=== PATIENT | female | born 1955 | race Caucasian/White ===

== ENCOUNTER 2024-03-22 13:48 | Emergency (ER) | payer MEDICARE, OTHER ==
[2024-03-22] MEDS ORDERED: Zofran 4 MG/2 ML VIAL ONE (14:36)
[2024-03-22] MEDS ORDERED: Hydromorphone 1 mg/ml Injection ONE (14:36)
[2024-03-22] MEDS ORDERED: Sodium Chloride 0.9% 1000 ML 1,000 ML ONE (14:37)
[2024-03-22 14:38] LABS: Absolute Neutrophil Ct (ANC) 2.67 x10^3/uL (1.56-6.13); Basophil (Absolute #) 0 x10^3/uL (0.01-0.08); Eosinophil % 3.8 % (0.7-5.8); Eosinophil (Absolute #) 0.13 x10^3/uL (0.04-0.36); Hematocrit 42.6 % (34.1-44.9); Hemoglobin 13.8 g/dL (11.2-15.7); IMMATURE GRAN # 0.01 x10^3u/L (0.001-0.031); IMMATURE GRAN % 0.3 % (0.001-0.429); Lymphocyte (Absolute #) 0.23 x10^3/uL (1.18-3.74); Lymphocytes % 6.7 % (19.3-51.7); Mean Cell Volume 88.6 fL (79.4-94.8); Mean Corpuscular Hemoglobin 28.7 pg (25.6-32.2); Mean Corpuscular Hgb Concent. 32.4 g/dL (32.2-35.5); Monocyte (Absolute #) 0.38 x10^3/uL (0.24-0.86); Monocytes % 11.1 % (4.7-12.5); Neutrophil % 78.1 % (34.0-71.1); Platelet Count 198 x10^3/uL (182-369); Red Blood Count 4.81 x10^6/uL (3.93-5.22); White Blood Count 3.4 x10^3/uL (3.98-10.04)
[2024-03-22] MEDS: Sodium Chloride 0.9% 1000 ML 1,000 ML IV STA (14:39)
[2024-03-22] MEDS: Hydromorphone 1 mg/ml Injection IV ONE (14:39)
[2024-03-22] MEDS: Zofran 4 MG/2 ML VIAL IV ONE (14:39)
[2024-03-22 14:43] LABS: ALBUMIN 4.5 g/dL (3.5-5.0); ANION GAP 16.8 MEQ/L (5-15); BILIRUBIN,TOTAL 0.4 mg/dL (0.2-1.3); Calcium 9.2 mg/dL (8.4-10.2); Creatinine 1 1.76 mg/dL (0.52-1.04); EST GLOMERULAR FILTRATION RATE 30.8 ML/MIN; Potassium 4.4 mmol/L (3.5-5.1)
--- NOTE | 2024-03-22 14:43 | ERPHSYRPT ---
- History of Present Illness Time Seen by Provider: 03/22/24 13:55 Source: patient Exam Limitations: no limitations Patient Subjective Stated Complaint: Vomiting Triage Nursing Assessment: ff Physician History: Patient here with abdominal pain, nausea, vomiting, feeling unwell. Has been going on for 2 to 3 days. Per the , several other people in the house are also sick. This includes the and the patient's granddaughter. Patient has had no abdominal surgeries outside of a . Patient was sent to the emergency department from urgent care for evaluation. States that she did have a fever up to 102.9 yesterday. No fever here, as I am in the room patient is not tachycardic. No other injuries, falls, trauma. Allergies/Adverse Reactions: amlodipine [From [facility]] Allergy (Verified 03/22/24 14:09) Home Medications: Amiodarone HCl 200 mg [Cordarone 200 MG] 200 mg PO DAILY 12/14/14 [History] Apixaban [Eliquis] 1 tab PO BID 12/14/14 [History] Aspirin 81 mg PO DAILY 12/14/14 [History] Carvedilol [Coreg 6.25 MG] 1 tab PO BID 12/14/14 [History] Furosemide [Lasix] 40 mg PO BID 12/14/14 [History] Levothyroxine Sodium 50 Mcg [Synthroid 50 Mcg] 1 tab PO DAILY 12/14/14 [History] Pravastatin Sodium 20 mg PO DAILY 12/14/14 [History] Hx Influenza Vaccination/Date Given: No Hx Pneumococcal Vaccination/Date Given: Yes Immunizations Up to Date: Yes Travel Risk - International Travel Have you traveled outside of the country in past 3 weeks: No - Emerging Infectious Disease Are you exhibiting symptoms associated with any current EIDs: No - Past Medical History Neurological History: No Pertinent History ENT History: No Pertinent History Cardiac History: Arrhythmia, Other Respiratory History: No Pertinent History Endocrine Medical History: Hypoglycemia Musculoskeletal History: No Pertinent History GI Medical History: No Pertinent History History: No Pertinent History Psycho-Social History: No Pertinent History Female Reproductive Disorders: No Pertinent History Other Medical History: chf - Past Surgical History Past Surgical History: Yes Neuro Surgical History: No Pertinent History Cardiac: CABG, Pacemaker, Other Respiratory: No Pertinent History Gastrointestinal: No Pertinent History Genitourinary: No Pertinent History Musculoskeletal: No Pertinent History Female Surgical History: Section Other Surgical History: CCM monitor trial study for CHF - Social History Smoking Status: Never smoker Exposure to second hand smoke: No Drug Use: none - Social Determinants of Health Will the patient participate in the screening: Yes Do you worry about a steady place to live?: No Do you have any problems with any of the following?: No known problems In the past 12 months,have you had to go without utilities?: No Transportation Issues: No Has anyone in your support network made you feel unsafe?: No Have you or anyone in your house had to go without enough: No - Nursing Vital Signs Nursing Vital Signs: Initial Vital Signs Pulse Rate 70 03/22/24 15:30 Respiratory Rate 16 03/22/24 15:30 Blood Pressure 86/58 03/22/24 15:30 O2 Sat by Pulse Oximetry 93 L 03/22/24 15:30 Pain Scale Pain Intensity 2 - Physical Exam Comments: 03/22/24 14:42 Review of Systems Constitutional: Negative for fever. HENT: Negative for congestion. Respiratory: Negative for shortness of breath. Cardiovascular: Negative for chest pain. Gastrointestinal: Abdominal pain Genitourinary: Negative for dysuria. Musculoskeletal: Negative for back pain. Skin: Negative for rash. Neurological: Negative for headaches. Psychiatric/Behavioral: Negative for behavioral problems. All other systems reviewed and are negative. Physical Exam Vitals signs and nursing note reviewed. Constitutional: Appearance: Patient is well-developed. HENT: Head: Normocephalic and atraumatic. Eyes: Conjunctiva/sclera: Conjunctivae normal. Neck: Musculoskeletal: Normal range of motion. Trachea: No tracheal deviation. Cardiovascular: Rate and Rhythm: Normal rate. Pulmonary: Effort: Pulmonary effort is normal. No respiratory distress. Abdominal: Palpations: Abdomen is soft. No rebound or guarding minimal tenderness Musculoskeletal: General: No deformity. Skin: General: Skin is warm and dry. Neurological/ Psychiatric: Mental Status: Mental status, behavior, interaction with environment is appropriate for patient's age and condition - Course Nursing assessment & vital signs reviewed: Yes EKG Interpreted by Me: Sinus Rhythm Ordered Tests: Active Orders 24 hr Category Date Time Status EKG-ER Only STAT Care 03/22/24 14:29 Active IV Insertion STAT Care 03/22/24 14:29 Active IV Insertion-2nd Peripheral STAT Care 03/22/24 16:23 Active ABDOMEN AND PELVIS W/0 CONTRAS [CT] Stat Exams 03/22/24 14:30 Completed CHEST 1 VIEW (PORTABLE) Stat Exams 03/22/24 14:30 Completed AMYLASE Stat Lab 03/22/24 14:00 Completed BLOOD CULTURE Stat Lab 03/22/24 16:04 Received BMP Stat Lab 03/22/24 15:50 Completed BNPII [NT PRO BNPII] Stat Lab 03/22/24 15:50 Completed CBC W DIFF Stat Lab 03/22/24 14:00 Completed CMP Stat Lab 03/22/24 14:00 Completed CULTURE,URINE Stat Lab 03/22/24 14:32 Received LIPASE Stat Lab 03/22/24 14:00 Completed Lactic Acid Stat Lab 03/22/24 15:56 Completed TROPONIN Q4H Lab 03/22/24 14:53 Completed TROPONIN Q4H Lab 03/22/24 18:45 Ordered TROPONIN Q4H Lab 03/22/24 22:45 Ordered UA W/RFX UR CULTURE Stat Lab 03/22/24 14:32 Completed Medication Summary Generic Name Dose Route Start Last Admin Trade Name Freq PRN Reason Stop Dose Admin Norepinephrine/Dextrose 8 mg in 250 mls @ 15 mls/hr 03/22/24 16:22 03/22/24 16:26 Norepinephrine 8 Mg/250 [id number] IV 04/21/24 16:21 8 mcg/min .[id number] PRN 15 mls/hr HYPOTENSION Administration Protocol 8 MCG/MIN Discontinued Medications Generic Name Dose Route Start Last Admin Trade Name Freq PRN Reason Stop Dose Admin Hydromorphone HCl 0.5 mg 03/22/24 14:29 03/22/24 14:39 Hydromorphone 1 Mg/1ml Inj IV 03/22/24 14:30 0.5 mg STAT ONE Administration Hydromorphone HCl Confirm 03/22/24 14:36 Hydromorphone 1 Mg/1ml Inj Administered 03/22/24 14:37 Dose 1 mg .ROUTE .STK-MED ONE Sodium Chloride 1,000 mls @ 999 mls/hr 03/22/24 14:29 03/22/24 15:40 Sodium Chloride 0.9% 1000 Ml IV 03/22/24 15:29 Infused .Q1H1M STA Infusion Sodium Chloride Confirm 03/22/24 14:37 Sodium Chloride 0.9% 1000 Ml Administered 03/22/24 14:38 Dose 1,000 mls @ ud .ROUTE .STK-MED ONE Piperacillin Sod/Tazobactam 100 mls @ 200 mls/hr 03/22/24 15:48 03/22/24 16:02 Sod 3.375 gm/ Sodium Chloride IV 03/22/24 16:17 200 mls/hr STAT ONE Administration Sodium Chloride Confirm 03/22/24 15:50 Sodium Chloride 100ml Mini-Bag Plus Administered 03/22/24 15:51 Dose 100 mls @ ud IV .STK-MED ONE Ondansetron HCl 4 mg 03/22/24 14:29 03/22/24 14:39 Ondansetron Hcl 4 Mg/2 Ml Vial IV 03/22/24 14:30 4 mg STAT ONE Administration Ondansetron HCl Confirm 03/22/24 14:36 Ondansetron Hcl 4 Mg/2 Ml Vial Administered 03/22/24 14:37 Dose 4 mg .ROUTE .STK-MED ONE Piperacillin Sod/Tazobactam Sod Confirm 03/22/24 15:49 Piperacillin/Tazobactam Sodium 3.375 Gm Vial Administered 03/22/24 15:50 Dose 3.375 gm IV .STK-MED ONE Lab/Rad Data: Laboratory Result Diagrams 03/22/24 14:00 03/22/24 15:50 Laboratory Results 03/22/24 03/22/24 03/22/24 Range/Units 15:56 15:50 15:50 WBC (3.98-10.04) x10^3/uL RBC (3.93-5.22) x10^6/uL Hgb (11.2-15.7) g/dL Hct (34.1-44.9) % MCV (79.4-94.8) fL MCH (25.6-32.2) pg MCHC (32.2-35.5) g/dL RDW (11.7-14.4) % Plt Count (182-369) x10^3/uL MPV (9.4-12.3) fL Gran % (34.0-71.1) % Immature Gran % (Auto) (0.001-0.429) % Nucleat RBC Rel Count (0.00-0.2) % Eos # (Auto) (0.04-0.36) x10^3/uL Immature Gran # (Auto) (0.001-0.031) x10^3u/L Absolute Lymphs (auto) (1.18-3.74) x10^3/uL Absolute Monos (auto) (0.24-0.86) x10^3/uL Absolute Nucleated RBC (0.00-0.012) x10^3u/L Lymphocytes % (19.3-51.7) % Monocytes % (4.7-12.5) % Eosinophils % (0.7-5.8) % Basophils % (0.1-1.2) % Absolute Granulocytes (1.56-6.13) x10^3/uL Basophils # (0.01-0.08) x10^3/uL Sodium 134 L (135-145) mmol/L Potassium 4.4 (3.5-5.1) mmol/L Chloride 99 (98-107) mmol/L Carbon Dioxide 23 (22-30) mmol/L Anion Gap 16.0 H (5-15) MEQ/L BUN 23 H (7-17) mg/dL Creatinine 1.59 H (0.52-1.04) mg/dL Estimated GFR 34.7 ML/MIN Glucose 96 (74-106) mg/dL Lactic Acid 1.2 (0.4-2.0) Calcium 8.1 L (8.4-10.2) mg/dL Total Bilirubin (0.2-1.3) mg/dL AST (14-36) U/L ALT (0-35) U/L Alkaline Phosphatase (38-126) U/L Troponin I (0.000-0.033) ng/mL NT-Pro-B Natriuret Pep 753 (<300) pg/mL Serum Total Protein (6.3-8.2) g/dL Albumin (3.5-5.0) g/dL Amylase (30-110) U/L Lipase (23-300) U/L Urine Color (Yellow) Urine Appearance (Clear) Urine pH (4.6-8.0) Ur Specific Disputanta (1.005-1.030) Urine Protein (Negative) Urine Glucose (UA) (Negative) mg/dL Urine Ketones (Negative) Urine Blood (Negative) Urine Nitrite (Negative) Urine Bilirubin (Negative) Urine Urobilinogen (0.2) mg/dL Ur Leukocyte Esterase (Negative) U Hyaline Cast (Auto) (0-2) /LPF Urine Microscopic RBC (0-5) /HPF Urine Microscopic WBC (0-5) /HPF Ur Epithelial Cells (None Seen) /HPF Urine Bacteria (None Seen) /HPF Urine Culture Reflexed (NO) Influenza Type A Ag (NEGATIVE) Influenza Type B Ag (NEGATIVE) RSV (PCR) (NEGATIVE) SARS-CoV-2 (PCR) (NEGATIVE) Slides for Path Review 03/22/24 03/22/24 03/22/24 Range/Units 14:53 14:45 14:32 WBC (3.98-10.04) x10^3/uL RBC (3.93-5.22) x10^6/uL Hgb (11.2-15.7) g/dL Hct (34.1-44.9) % MCV (79.4-94.8) fL MCH (25.6-32.2) pg MCHC (32.2-35.5) g/dL RDW (11.7-14.4) % Plt Count (182-369) x10^3/uL MPV (9.4-12.3) fL Gran % (34.0-71.1) % Immature Gran % (Auto) (0.001-0.429) % Nucleat RBC Rel Count (0.00-0.2) % Eos # (Auto) (0.04-0.36) x10^3/uL Immature Gran # (Auto) (0.001-0.031) x10^3u/L Absolute Lymphs (auto) (1.18-3.74) x10^3/uL Absolute Monos (auto) (0.24-0.86) x10^3/uL Absolute Nucleated RBC (0.00-0.012) x10^3u/L Lymphocytes % (19.3-51.7) % Monocytes % (4.7-12.5) % Eosinophils % (0.7-5.8) % Basophils % (0.1-1.2) % Absolute Granulocytes (1.56-6.13) x10^3/uL Basophils # (0.01-0.08) x10^3/uL Sodium (135-145) mmol/L Potassium (3.5-5.1) mmol/L Chloride (98-107) mmol/L Carbon Dioxide (22-30) mmol/L Anion Gap (5-15) MEQ/L BUN (7-17) mg/dL Creatinine (0.52-1.04) mg/dL Estimated GFR ML/MIN Glucose (74-106) mg/dL Lactic Acid (0.4-2.0) Calcium (8.4-10.2) mg/dL Total Bilirubin (0.2-1.3) mg/dL AST (14-36) U/L ALT (0-35) U/L Alkaline Phosphatase (38-126) U/L Troponin I < 0.012 (0.000-0.033) ng/mL NT-Pro-B Natriuret Pep (<300) pg/mL Serum Total Protein (6.3-8.2) g/dL Albumin (3.5-5.0) g/dL Amylase (30-110) U/L Lipase (23-300) U/L Urine Color Yellow (Yellow) Urine Appearance Clear (Clear) Urine pH 6.0 (4.6-8.0) Ur Specific Disputanta 1.015 (1.005-1.030) Urine Protein Negative (Negative) Urine Glucose (UA) >=1000 A (Negative) mg/dL Urine Ketones Trace A (Negative) Urine Blood Small A (Negative) Urine Nitrite Negative (Negative) Urine Bilirubin Negative (Negative) Urine Urobilinogen 0.2 (0.2) mg/dL Ur Leukocyte Esterase Small A (Negative) U Hyaline Cast (Auto) 3-5 A (0-2) /LPF Urine Microscopic RBC 0-2 (0-5) /HPF Urine Microscopic WBC 3-5 (0-5) /HPF Ur Epithelial Cells None Seen (None Seen) /HPF Urine Bacteria Rare A (None Seen) /HPF Urine Culture Reflexed YES (NO) Influenza Type A Ag NEGATIVE (NEGATIVE) Influenza Type B Ag NEGATIVE (NEGATIVE) RSV (PCR) NEGATIVE (NEGATIVE) SARS-CoV-2 (PCR) NEGATIVE (NEGATIVE) Slides for Path Review 03/22/24 03/22/24 Range/Units 14:00 14:00 WBC 3.4 L (3.98-10.04) x10^3/uL RBC 4.81 (3.93-5.22) x10^6/uL Hgb 13.8 (11.2-15.7) g/dL Hct 42.6 (34.1-44.9) % MCV 88.6 (79.4-94.8) fL MCH 28.7 (25.6-32.2) pg MCHC 32.4 (32.2-35.5) g/dL RDW 14.0 (11.7-14.4) % Plt Count 198 (182-369) x10^3/uL MPV 10.0 (9.4-12.3) fL Gran % 78.1 H (34.0-71.1) % Immature Gran % (Auto) 0.3 (0.001-0.429) % Nucleat RBC Rel Count 0.0 (0.00-0.2) % Eos # (Auto) 0.13 (0.04-0.36) x10^3/uL Immature Gran # (Auto) 0.01 (0.001-0.031) x10^3u/L Absolute Lymphs (auto) 0.23 L (1.18-3.74) x10^3/uL Absolute Monos (auto) 0.38 (0.24-0.86) x10^3/uL Absolute Nucleated RBC 0.00 (0.00-0.012) x10^3u/L Lymphocytes % 6.7 L (19.3-51.7) % Monocytes % 11.1 (4.7-12.5) % Eosinophils % 3.8 (0.7-5.8) % Basophils % 0.0 L (0.1-1.2) % Absolute Granulocytes 2.67 (1.56-6.13) x10^3/uL Basophils # 0 L (0.01-0.08) x10^3/uL Sodium 133 L (135-145) mmol/L Potassium 4.4 (3.5-5.1) mmol/L Chloride 97 L (98-107) mmol/L Carbon Dioxide 24 (22-30) mmol/L Anion Gap 16.8 H (5-15) MEQ/L BUN 24 H (7-17) mg/dL Creatinine 1.76 H (0.52-1.04) mg/dL Estimated GFR 30.8 ML/MIN Glucose 107 H (74-106) mg/dL Lactic Acid (0.4-2.0) Calcium 9.2 (8.4-10.2) mg/dL Total Bilirubin 0.40 (0.2-1.3) mg/dL AST 35 (14-36) U/L ALT 25 (0-35) U/L Alkaline Phosphatase 79 (38-126) U/L Troponin I (0.000-0.033) ng/mL NT-Pro-B Natriuret Pep (<300) pg/mL Serum Total Protein 8.0 (6.3-8.2) g/dL Albumin 4.5 (3.5-5.0) g/dL Amylase 66 (30-110) U/L Lipase 95 (23-300) U/L Urine Color (Yellow) Urine Appearance (Clear) Urine pH (4.6-8.0) Ur Specific Disputanta (1.005-1.030) Urine Protein (Negative) Urine Glucose (UA) (Negative) mg/dL Urine Ketones (Negative) Urine Blood (Negative) Urine Nitrite (Negative) Urine Bilirubin (Negative) Urine Urobilinogen (0.2) mg/dL Ur Leukocyte Esterase (Negative) U Hyaline Cast (Auto) (0-2) /LPF Urine Microscopic RBC (0-5) /HPF Urine Microscopic WBC (0-5) /HPF Ur Epithelial Cells (None Seen) /HPF Urine Bacteria (None Seen) /HPF Urine Culture Reflexed (NO) Influenza Type A Ag (NEGATIVE) Influenza Type B Ag (NEGATIVE) RSV (PCR) (NEGATIVE) SARS-CoV-2 (PCR) (NEGATIVE) Slides for Path Review YES - Progress Progress: improved Progress Note: 03/22/24 14:43 Differential diagnosis includes kidney stone, compression fracture, infection, UTI, triple AAA - basic labs including: CBC, lipase, CMP, UA - insert IV for symptom management - consider imaging: CT ab/pelvis or U/S Reevaluation Patient feels improved with medication. 03/22/24 17:16 Labs and overall picture demonstrate acute hypovolemic shock with acute renal failure. Patient has no obvious surgical emergency on CT scan of the abdomen and chest x-ray. Patient is in acute renal failure, hypotensive, did require norepinephrine blood pressure support. Given patient's history of severe conge stive heart failure, multiple blood pressure medications she may be not excreting the blood pressure medication therefore this is why she is hypotensive as well. Either way, patient will need to be in a facility with ICU level care, in person cardiology evaluation, potential echocardiogram. Therefore I did discuss with Isis [facility], ER physician Jb Joyce. He did accept the patient for ER to ER transfer. Patient will be transferred via ALS. ED critical care statement As staff physician, I have provided critical care. Time: 55 mins Criteria for critical illness: Acute renal failure with hypovolemic shock not responsive to initial fluid resuscitation requiring blood pressure support with norepinephrine Treatment and management provided include: Coordination of management with ETC care team, consultants, and inpatient care team. [id number] assessment of condition and response to therapy. Review and interpretation of emergent diagnostic testing. Medical chart review and completion. Direction and immediate supervision of the following therapy: Critical care was time spent personally by me on the following activities: blood draw for specimens, development of treatment plan with patient or surrogate, discussions with consultants, discussions with primary provider, interpretation of cardiac output measurements, evaluation of patient's response to treatment, examination of patient, obtaining history from patient or surrogate, ordering and performing treatments and interventions, ordering and review of laboratory studies, orderi ng and review of radiographic studies, pulse oximetry, re-evaluation of patient's condition and review of old charts. This time was independent of all procedures performed. Vincent Cooper Counseled pt/family regarding: lab results, diagnosis, need for follow-up, rad results - Departure Departure Disposition: Transfer Clinical Impression: Acute renal failure, Hypovolemic shock, Acute dehydration Condition: Stable Critical Care Time: Yes Critical Care Time(excluding separately billable procedures): Critical 30-74 mins Referrals: PA FERNANDEZ DO [Primary Care Provider] - Follow up/PCP as directed
[2024-03-22 14:53] LABS: ADD URINE CULTURE? YES (NO); Appearance Clear (Clear); Bacteria Rare /HPF (None Seen); Bilirubin Negative (Negative); Blood Small (Negative); Epithelial Cells None Seen /HPF (None Seen); Glucose, Urine >=1000 mg/dL (Negative); Ketones Trace (Negative); Leukocyte Esterase Small (Negative); Nitrite Negative (Negative); Protein,Urine Dip Negative (Negative); RBC 0-2 /HPF (0-5); Specific Gravity 1.015 (1.005-1.030); Urobilinogen 0.2 mg/dL (0.2)
[2024-03-22 15:03] LABS: Slide Review 1 YES
[2024-03-22 15:31] LABS: INFLUENZA A NEGATIVE (NEGATIVE); INFLUENZA B NEGATIVE (NEGATIVE); RESPIRATORY SYNCTIAL VIRUS NEGATIVE (NEGATIVE); SARS-CoV-2 Xpert Express NEGATIVE (NEGATIVE)
[2024-03-22] MEDS ORDERED: PIPERACILLIN/TAZOBACTAM IV ONE (15:49)
[2024-03-22] MEDS ORDERED: Sodium Chloride 100ML MINI-BAG PLUS 100 ML IV ONE (15:50)
[2024-03-22] MEDS: PIPERACILLIN/TAZOBACTAM 3.375 GM in Sodium Chloride 100ML MINI-BAG PLUS 100 ML IV ONE (16:02)
[2024-03-22 16:17] LABS: Calcium 8.1 mg/dL (8.4-10.2); Creatinine 1 1.59 mg/dL (0.52-1.04); EST GLOMERULAR FILTRATION RATE 34.7 ML/MIN; Potassium 4.4 mmol/L (3.5-5.1)
[2024-03-22] MEDS ORDERED: NOREPINEPHRINE 8 MG/250 ML-D5W 8 MG/250 ML PLAST..BAG IV ONE (16:25)
[2024-03-22] MEDS: NOREPINEPHRINE 8 MG/250 ML-D5W 8 MG/250 ML PLAST..BAG IV PRN (16:26)
--- NOTE | 2024-03-22 16:32 | XRAY ---
Indication: Vomiting. Weakness. Comparison: None Portable chest inflated and clear. Heart enlarged with cardiac valve replacement and bilateral dual-lead pacemakers. Bony thorax intact with osteopenia and degenerative changes. Impression: Cardiomegaly. Negative for acute pneumonic process or CHF.
--- NOTE | 2024-03-22 16:32 | XRAY ---
Indication: Vomiting. Small bowel obstruction. Multiple contiguous axial images obtained through the abdomen and pelvis without contrast. Comparison: None Lung bases demonstrates mild bibasilar subsegmental atelectasis/scarring. Heart borderline enlarged. Small hiatal hernia. Noncontrasted stomach and bowel loops appear nonobstructed with normal appendix. Scattered descending and sigmoid diverticulosis without diverticulitis. 6.5 cm right ovary cyst. 9 mm gallstone. No free fluid/air. Remaining liver, gallbladder, pancreas, spleen, adrenal glands, kidneys, ureters, bladder, and uterus are unremarkable for noncontrast exam. Minimal aortoiliac calcifications without AAA. Osseous structures intact with osteopenia, minimal/mild degenerative changes throughout the spine, moderate levorotoscoliosis centered at L3, and mild degenerative changes both hips. Impression: 1. 9 mm gallstone and 6.5 cm right ovary cyst. Sonogram may yield further information if clinically warranted. 2. Chronic findings including borderline cardiomegaly, hiatal hernia, colonic diverticulosis, arteriosclerotic disease, and chronic bony findings. 3. Remaining CT abdomen/pelvis without contrast exam is negative.
[2024-03-22 17:34] VITALS: BP 117/78; PULSE 76; RESP 22; O2SAT 99
== END 2024-03-22 18:15 | disposition short-term general hospital (02) ==
LOC: ED 13:48
DX: N17.9 Acute kidney failure, unspecified (principal); R57.1 Hypovolemic shock; E86.0 Dehydration; R11.2 Nausea with vomiting, unspecified; R10.9 Unspecified abdominal pain; R50.9 Fever, unspecified; Z79.01 Long term (current) use of anticoagulants; Z79.899 Other long term (current) drug therapy
CPT/HCPCS: 0241U; 36000; 36415; 71045; 74176; 80048; 80053; 81001; 82150; 83605; 83690; 83880; 84484; 85025; 87040; 87077; 87086; 87186; 93005; 96365; 96367; 96374; 96375; 99285; 99291; J1170; J2405